=== PATIENT | female | born 1980 | race Caucasian/White ===

== ENCOUNTER 2016-06-18 03:41 | Inpatient (IN) | payer OTHER ==
[~2016-06-18] VITALS: Ht 167.6 cm; Wt 78.9 kg
[2016-06-18 05:42] LABS: ABSOLUTE BASOPHIL COUNT 0.1 /CUMM (0.0-0.2); ABSOLUTE EOSINOPHIL COUNT 0.1 /CUMM (0.0-0.7); ABSOLUTE GRANULOCYTE CT 6.6 /CUMM (1.4-6.5); ABSOLUTE MONOCYTE COUNT 0.7 /CUMM (0.10-0.60); BASOPHIL % 0.6 % (0.0-2.0); EOSINOPHIL % 1.3 % (0-5); GRANULOCYTE % 62.5 % (42.2-75.2); HEMATOCRIT 37.6 % (37-47); MEAN CORPUSCULAR HGB 29.1 PG (27.0-31.0); MEAN CORPUSCULAR HGB CONC 33.4 G/DL (33.0-37.0); MEAN CORPUSCULAR VOLUME 87.3 FL (81.0-99.0); MEAN PLATELET VOLUME 11.5 FL (7.4-10.4); PLATELET COUNT 193 /CUMM (130-400); RBC DISTRIBUTION WIDTH 13.5 % (11.5-14.5); WHITE BLOOD CELL COUNT 10.6 /CUMM (4.8-10.8)
--- NOTE | 2016-06-18 08:52 | Labor & Delivery Summary ---
Delivery Summary Vaginal Delivery: Vaginal: vertex Episiotomy/Lacerations: Episiotomy/Lacerations: 1ST DEGREE Placenta: Placenta: spontanteous, normal, 3 vessel Anesthesia: block, EPIDURAL PLACED JUST PRIOR TO DELIVERY. SOME EFFECTIVENESS AT TIME OF DELIVERY Apgars - 1 Min: 9 Apgars - 5 Min: 9 Additional Comments: PT ARRIVED ONE CM. CHANGED CVX TO 3CM. PT WAS ADMITTED AND SHORTLY AFTERWARD REQUESTED EPIDURAL. IMMEDIATELY AFTERWARD WAS FULLY DILATED, SROM AND DESIRED TO PUSH. PT DELIVERD WITHOUT COMPLICATIONS. HEAD AND SHOULDERS AND BODY DELIVERED ATRAUMATICALLY. PT DELIVERED AT 0823. DELAYED CORD CLAMPING. CORD CLAMPED AND CUT. PLACED ON MATERNAL ABDOMEN. PLACENTA DELIVERED INTACT. ONE SUTURE PLACED FOR ABRASION MIDLINE VAGINAL MUCOSA AT 6 O'CLOCK. PT TOLERATED WELL.
--- NOTE | 2016-06-18 09:14 | History & Physical ---
General Information and HPI MD Statement: I have seen and personally examined MERCEDES TERRAZAS and documented this H&P. The patient is a 35 year old female at [46] weeks and 5[] days gestation who presented with a chief complaint of [LABO]. Source of Information: patient Exam Limitations: no limitations History of Present Illness: 35 YEAR OLD @ 36+5 WEEKS PRESENTED IN ACTIVE LABOR. UPON INITIAL EVAL WAS 1CM. CHANGED CVX TO 3CM AND ADMITTED. I ASSUMED CARE OF PATIENT AT 0700 AT WHICH TIME SHE WAS REQUESTING EPIDURAL. 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 Past Pregnancies Past Pregnancies: Date of Delivery: Gestational Age: 39 Type of Delivery: vaginal Medical History Blood Transfusion Hx: No Neurological: NONE EENT: NONE Cardiovascular: NONE Respiratory: NONE Gastrointestinal: NONE Hepatic: NONE Renal: NONE Musculoskeletal: NONE Psychiatric: NONE Endocrine: NONE Blood Disorders: NONE Cancer(s): NONE 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 Cardiovascular: Reports: no symptoms. Respiratory: Reports: no symptoms. GI: Reports: no symptoms. Genitourinary: Reports: see HPI. All Other Systems: Reviewed and Negative Exam & Diagnostic Data Last 24 Hrs of Vital Signs/I&O Intake & Output / 1600 04/08 0800 04/08 0000 Intake Total Output Total Balance Patient 174 lb Weight Obstetric Exam Wgt Gained During : 25 Pelvimetry: PROVEN TO 5'15" Dilation (cm): 3 Effacement (%): 90 Station: -1 Membranes: intact Fluid: unknown Fundal Height (cm): 37 Multiple Gestation? No Contractions: Q2-3 #1 - FHR Baseline: 120 Category: 1 Estimated Weight: 6 Presentation: VTX Patient for Induction? No Physical Exam General Appearance Alert, Oriented X3, Cooperative, Mild Distress Cardiovascular Regular Rate Lungs Normal Air Movement Abdomen Normal Bowel Sounds (GRAVID) Reproductive (FEMALE) Normal female genitalia Labs Blood Type & Rh: A NEG Antibody Screen: NEG Hct/Hgb & Platelets #1: 13.2 39.2 232 Hct/Hgb & Platelets #2: 11.6 37 230 Rubella: IMM VDRL #1: NEG VDRL #2: NEG HbsAg: NEG HIV #1: NEG HIV #2 NEG 1 Hr P Group B Strep: POS Initial Ultrasound: 12W NL Anatomy Ultrasound: 12.13.16 Ultrasound for EFW: 6.3 AT 36 W Genetic Testing: NL MAT 21, NL HGB ELEC AND CF AND AFP Last 24 Hrs of Labs/Kasi: Laboratory Tests 06/18/16 0510: Ur Random Creatinine Pending, U Random Total Protein Pending 06/18/16 0510: Ur Random Creatinine Cancelled, U Random Total Protein Cancelled 06/18/16 0510: Estimated GFR > 60, Uric Acid 4.7, AST 21, ALT 27, Lactate Dehydrogenase 505, CBC w Diff NO MAN DIFF REQ, RBC 4.30, MCV 87.3, MCH 29.1, RDW 13.5, MPV 11.5 H, Gran % 62.5, Lymphocytes % 28.6, Monocytes % 7.0, Eosinophils % 1.3, Basophils % 0.6, Absolute Granulocytes 6.6 H, Absolute Lymphocytes 3.0, Absolute Monocytes 0.7 H, Absolute Eosinophils 0.1, Absolute Basophils 0.1, PUBS MCHC 33.4, Urine Color YEL, Urine Clarity HAZY H, Urine pH 6.5, Ur Specific [place] 1.010, Urine Protein TRACE H, Urine Ketones NEG, Urine Nitrite NEG, Urine Bilirubin NEG, Urine Urobilinogen 0.2, Ur Leukocyte Esterase TRACE H, Ur Microscopic SEDIMENT EXAMINED, Urine WBC 1-3 H, Ur Epithelial Cells MANY H, Urine Bacteria FEW H, Urine Hemoglobin NEG, Urine Glucose NEG Assessment/Plan Assessment/Plan: 35 YEAR OLD @ 36+5 WEEKS. ACTIVE LABOR. GBS +. RECEIVED DOSE OF ABX ON ADMISSION. EPIDURAL ORDERED AND SHORTLY AFTERWARD DELIVERED WITHOUT COMPLICATIONS. As Ranked By This Provider Problem List: 1. Core Measures/Miscellaneous Venous Thromboembolism VTE Risk Factors: / VTE Contraindications: No Contraindications VTE Diagnosis: No Beta Eran Is Beta Eran a Home Med? No Antibiotics Is Patient on Antibiotics? No Attending MD Review Statement Attending Statement Attending MD Statement: examined this patient, discussed with family, discussed w/nursing
[2016-06-18 23:19] VITALS: BP 112/72
[2016-06-19 09:22] LABS: ABSOLUTE BASOPHIL COUNT 0 /CUMM (0.0-0.2); ABSOLUTE EOSINOPHIL COUNT 0.1 /CUMM (0.0-0.7); ABSOLUTE GRANULOCYTE CT 7.3 /CUMM (1.4-6.5); ABSOLUTE LYMPH COUNT 3.1 /CUMM (1.2-3.4); ABSOLUTE MONOCYTE COUNT 0.6 /CUMM (0.10-0.60); BASOPHIL % 0.4 % (0.0-2.0); EOSINOPHIL % 1.1 % (0-5); GRANULOCYTE % 65.1 % (42.2-75.2); HEMATOCRIT 34.9 % (37-47); MEAN CORPUSCULAR HGB 29.5 PG (27.0-31.0); MEAN CORPUSCULAR HGB CONC 33.4 G/DL (33.0-37.0); MEAN CORPUSCULAR VOLUME 88.6 FL (81.0-99.0); MEAN PLATELET VOLUME 11.1 FL (7.4-10.4); PLATELET COUNT 180 /CUMM (130-400); RBC DISTRIBUTION WIDTH 13.6 % (11.5-14.5); RED BLOOD CELL CT 3.94 /CUMM (4.20-5.40); WHITE BLOOD CELL COUNT 11.2 /CUMM (4.8-10.8)
--- NOTE | 2016-06-19 10:31 | PN- OBGYN ---
See Addendum Surgical Brief Attending Note Brief Attending Note: POD#1 pt is resting in bed, c/o feels much better than yesterday. tolerate diet, molina d/c'd am, flatus (-) PE: VSS, agfebrile since midnight. CV RRR Lungs CTA B/L Abdomen: soft, nontender, BS(+), uterus firm, fundus below umbilicus, incision D /C/I, lochia mild Ext: DCT (-) A/P: 35 yo, s/p PLTCS, POD#1 1. encourage ambulation and . 2. continue IV antibiotics till 24h afebrile. 3. pain management as needed 4. RT PP care
--- NOTE | 2016-06-19 10:38 | PN- OBGYN ---
Surgical Brief Attending Note Brief Attending Note: PPD#1 pt is resting in bed, no complaints. tolerate diet, void without difficulties, ambulating well PE: VSS CV RRR Lungs CTA B/L Abdomen: soft, nontender, uterus firm, funduc below umbilicus, lochia mild Ext: DCT (-) A/P : 35 yo, s/p , PTD , PPD#1 1. encourage ambulation , pain management as needed 2. elective circumcision d/w pt, pt and decide not to have it done today, rather wait till tomorrow . 3.RT PP care
[2016-06-20] MEDS ORDERED: IBUPROFEN800 M1 PO (10:01)
--- NOTE | 2016-06-20 10:21 | PN- Post Delivery/GYN ---
Subjective Subjective: Ready for d/c- circ permit signed Review of Systems: Neg for cardiac pulmonary GI complaints Objective Last 24 Hrs of Vital Signs/I&O 98.7 P84 R 16 BP 120/82 PO2 99% RA Physical Exam General Appearance Alert, Oriented X3, Cooperative, No Acute Distress Skin No Significant Lesion Cardiovascular Regular Rate Lungs Normal Air Movement Abdomen Normal Bowel Sounds, Soft, No Tenderness, No Hepatospenomegaly, Fundus firm nontender 2 FB below umbilicus Neurological Normal Gait, Normal Speech Extremities No Tenderness/Swelling Reproductive (FEMALE) Normal female genitalia, avge lochia Current Medications: Current Medications Sig/Bety Start time Last Medication Dose Route Stop Time Status Admin Acetaminophen 650 MG Q4P PRN 06/18 899 AC PO Docusate Sodium 100 MG BID PRN 06/18 899 AC PO Hydroxyzine HCl 50 MG AT BEDTIME NEED.. 06/18 899 AC PO Ibuprofen 800 MG .STK-MED ONE 06/197 DC PO 06/19 2128 Ibuprofen 800 MG .STK-MED ONE 06/19 1512 DC PO 06/19 1513 Ibuprofen 800 MG Q6P PRN 06/18 899 AC 06/20 PO 0540 Oxycodone/ 1 TAB Q3P PRN 06/18 899 AC Acetaminophen PO Assessment/Plan Assessment/Plan stable PPD #2 circ today discharge home later Problem List: 1. 2. Term of male Attending MD Review Statement Attending Statement Attending MD Statement: examined this patient, discussed with family, reviewed EMR data (avail), discussed with nursing Attending Assessment/Plan: Rosa Elena Grant
== END 2016-06-20 11:52 | DRG 775 ==
LOC: CBCO 03:41 → GNO 06:06 → CBCO 07-11 08:00
PROVIDERS: Obstetrics & Gynecology; ADMIT Obstetrics & Gynecology
PROC: 0HQ9XZZ Repair Perineum Skin, External Approach (ICD-10-PCS; principal; 2016-06-18)
PROC: 10E0XZZ Delivery of Products of Conception, External Approach (ICD-10-PCS; principal; 2016-06-18)
DX: O70.0 First degree perineal laceration during delivery (principal); O99.824 Streptococcus B carrier state complicating childbirth; Z3A.36 36 weeks gestation of pregnancy; Z37.0 Single live birth
CPT/HCPCS: 36415; 81001; 82570; 86920; 86922; G0463; J0595; J7120